=== PATIENT | male | born 1965 | race Caucasian/White ===

== ENCOUNTER 2024-02-29 17:43 | Inpatient (IN) | payer BC ==
[~2024-02-29] VITALS: Ht 165.1 cm; Wt 73.9 kg
[2024-02-29] MEDS: PIPERACILLIN/TAZO 3.375G/50ML 50 ML IV ONE (18:27)
[2024-02-29] MEDS: SODIUM CHLORIDE 0.9% 1000ML BAG (SEPSIS BOLUS) IV ONE (18:27)
[2024-02-29] MEDS: ACETAMINOPHEN 325MG TABLET PO STA (18:27)
[2024-02-29] MEDS: VANCOMYCIN 1G PREMIX 200 ML IV ONE (18:52)
[2024-02-29 18:59] LABS: HEMATOCRIT. 38.3 % (42.0-52.0); MEAN CORPUSCULAR HEMOGLOBIN 30.5 pg (28.0-32.0); MEAN CORPUSCULAR HGB CONC 33.9 g/dL (31.0-37.0); MEAN CORPUSCULAR VOLUME 90.1 fL (80.0-94.0); MEAN PLATELET VOLUME 7.4 fl (7.4-10.4); PLATELET 292 x1000/uL (130-400); RED BLOOD CELL COUNT 4.25 mill/uL (4.7-6.1); RED CELL DISTRIBUTION WIDTH 13.1 % (11.6-14.6); WHITE BLOOD COUNT 14.7 x1000/uL (4.5-11.0)
[2024-02-29 19:00] LABS: DIFFERENTIAL COMMENT 1
[2024-02-29 19:03] LABS: CHLORIDE 97 mEq/L (98-107); POTASSIUM 4.5 mEq/L (3.5-5.1); SODIUM 125 mEq/L (136-145)
[2024-02-29 19:04] LABS: CALCIUM 8.8 mg/dL (8.7-10.4); CARBON DIOXIDE 22 mEq/L (21-32)
[2024-02-29 19:09] LABS: CREATININE 1.3 mg/dL (0.6-1.3); UREA NITROGEN BLOOD 21 mg/dL (9-23)
[2024-02-29 19:10] LABS: CLARITY URINE CLOUDY (CLEAR); COLOR URINE YELLOW (YELLOW); GLUCOSE URINE 3+ (NEGATIVE); KETONES URINE 1+ (NEGATIVE); LEUKOCYTE ESTERASE URINE NEGATIVE (NEGATIVE); NITRITE URINE NEGATIVE (NEGATIVE); OCCULT BLOOD URINE 2+ (NEGATIVE); PH URINE 5.5 (4.5-8.0); PROTEIN URINE 2+ (NEGATIVE); SPECIFIC GRAVITY URINE 1.026 (1.005-1.030); UROBILINOGEN URINE 0.2 E.U./dL (0.2-1.0)
[2024-02-29 19:11] LABS: GLUCOSE 488 mg/dL (70-105)
[2024-02-29 19:20] LABS: PLATELET ESTIMATE NORMAL; PROTHROMBIN TIME 11.4 sec (9.6-11.0)
[2024-02-29 19:36] LABS: BACTERIA URINE 4+; SQUAMOUS EPITHELIAL CELL URINE FEW /lpf (RARE/1+); WBC URINE 25-50 /hpf (0-2)
[2024-02-29 19:53] LABS: ALANINE AMINOTRANSFERASE 13 IU/L (10-49); ALBUMIN 3.8 g/dL (3.2-4.8); ASPARTATE AMINOTRANSFERASE 16 IU/L (<34); BILIRUBIN DIRECT 0.2 mg/dL (<=3.0); BILIRUBIN TOTAL 0.5 mg/dL (0.1-1.0)
[2024-02-29 19:54] LABS: PROTEIN TOTAL 6.5 g/dL (6.0-8.3)
[2024-02-29] MEDS: INSULIN REGULAR (HUMULIN R) 300UNITS/3ML VIAL SUBCUT NR (20:09)
[2024-02-29 20:26] LABS: TROPONIN I HIGH SENSITIVITY 7 ng/L (3.0-53)
[2024-02-29] MEDS: IOHEXOL-300 100 ML BOTTLE ONE (21:53)
[2024-03-01] MEDS ORDERED: DEXTROSE 50% WATER 50ML SYRINGE IV PRN (11:00)
[2024-03-01] MEDS: PIPERACILLIN/TAZO 3.375G/50ML 50 ML IV SCH (11:08)
[2024-03-01] MEDS: INSULIN GLARGINE 100 UNITS/ML SUBCUT NR (11:41)
[2024-03-01] MEDS: BLOOD SUGAR DIAGNOSTIC STRIP TEST SCH (11:49)
[2024-03-01] MEDS: INSULIN LISPRO 100 UNITS/ML SUBCUT SCH (12:13)
[2024-03-01] MEDS: SODIUM CHLORIDE 0.9% 1,000 ML IV SCH (14:13)
[2024-03-01] MEDS: AMIKACIN 500MG in SODIUM CHLORIDE 0.9% 100ML IV NR (14:32)
[2024-03-01] MEDS: GADOTERATE MEGLUMINE 5 MMOL/10 ML VIAL IV ONE (16:44)
[2024-03-01 20:30] VITALS: PULSE 98; RESP 20; TEMP 98
[2024-03-01 20:41] VITALS: BP 153/78; PULSE 98; RESP 20; TEMP 98
[2024-03-01 20:45] VITALS: BP 153/78; PULSE 98; RESP 20; TEMP 98
[2024-03-01] MEDS: INSULIN GLARGINE 100 UNITS/ML SUBCUT SCH (21:56)
[2024-03-02] VITALS: BP 129/76; PULSE 92; RESP 19; TEMP 97.5
[2024-03-02 04:00] VITALS: BP 108/49; PULSE 80; RESP 16; TEMP 97.8
[2024-03-02 07:43] LABS: BASOPHILS % 0.5 % (0.0-2.0); EOSINOPHILS % 0.3 % (0.0-5.0); HEMATOCRIT. 33.5 % (42.0-52.0); HEMOGLOBIN. 11.5 g/dL (14.0-18.0); LYMPHOCYTES % 10.1 % (20.0-50.0); MEAN CORPUSCULAR HEMOGLOBIN 30.3 pg (28.0-32.0); MEAN CORPUSCULAR HGB CONC 34.2 g/dL (31.0-37.0); MEAN CORPUSCULAR VOLUME 88.4 fL (80.0-94.0); MEAN PLATELET VOLUME 7.1 fl (7.4-10.4); MONOCYTES % 9.4 % (2.0-8.0); NEUTROPHILS % 79.7 % (40.0-76.0); PLATELET 227 x1000/uL (130-400); RED BLOOD CELL COUNT 3.79 mill/uL (4.7-6.1); RED CELL DISTRIBUTION WIDTH 13.1 % (11.6-14.6); WHITE BLOOD COUNT 8.2 x1000/uL (4.5-11.0)
[2024-03-02 07:56] LABS: CALCIUM 7.9 mg/dL (8.7-10.4); CARBON DIOXIDE 24 mEq/L (21-32); CHLORIDE 102 mEq/L (98-107); POTASSIUM 3.9 mEq/L (3.5-5.1); SODIUM 133 mEq/L (136-145)
[2024-03-02 08:00] VITALS: BP 140/70; PULSE 80; RESP 18; TEMP 97.2
[2024-03-02 08:02] LABS: UREA NITROGEN BLOOD 15 mg/dL (9-23)
[2024-03-02 08:10] LABS: GLUCOSE 219 mg/dL (70-105)
[2024-03-02 12:00] VITALS: BP 137/68; PULSE 78; RESP 18; TEMP 97
[2024-03-02 16:00] VITALS: BP 153/90; PULSE 101; RESP 18; TEMP 97.4
[2024-03-02 20:00] VITALS: BP 142/67; PULSE 94; RESP 18; TEMP 98
[2024-03-02] MEDS: CEFTRIAXONE 2GM/50ML 50 ML IV SCH (21:07)
[2024-03-02] MEDS: INSULIN GLARGINE 100 UNITS/ML SUBCUT SCH (21:08)
[2024-03-03] VITALS: BP 151/72; PULSE 99; RESP 18; TEMP 97.5
[2024-03-03 04:00] VITALS: BP 138/84; PULSE 72; RESP 17; TEMP 98
[2024-03-03 08:00] VITALS: BP 154/81; PULSE 97; RESP 18; TEMP 97.2
[2024-03-03 12:00] VITALS: BP 134/77; PULSE 98; RESP 18; TEMP 98
[2024-03-03] MEDS: ENOXAPARIN 40MG/0.4ML SYR SUBCUT SCH (12:48)
[2024-03-03] MEDS ORDERED: LEVO750T68 MT (13:01)
[2024-03-03 16:00] VITALS: BP 159/84; PULSE 96; RESP 18; TEMP 97.3
[2024-03-03 20:26] VITALS: BP_SYST 149; BP_SYST 163; BP_DIAS 84; BP_DIAS 89; PULSE 88; RESP 20; TEMP 100.8; TEMP 98
[2024-03-03] MEDS: INSULIN GLARGINE 100 UNITS/ML SUBCUT SCH (23:18)
[2024-03-04] VITALS (7 sets, daily range): BP systolic 135–168; BP diastolic 66–91; PULSE 76–92; RESP 18–20; TEMP 97.7–99.1
[2024-03-04 08:36] LABS: BASOPHILS % 0.7 % (0.0-2.0); EOSINOPHILS % 0.7 % (0.0-5.0); HEMATOCRIT. 33.6 % (42.0-52.0); HEMOGLOBIN. 11.5 g/dL (14.0-18.0); LYMPHOCYTES % 14.5 % (20.0-50.0); MEAN CORPUSCULAR HEMOGLOBIN 30.1 pg (28.0-32.0); MEAN CORPUSCULAR HGB CONC 34.4 g/dL (31.0-37.0); MEAN CORPUSCULAR VOLUME 87.7 fL (80.0-94.0); MEAN PLATELET VOLUME 7.3 fl (7.4-10.4); MONOCYTES % 13.2 % (2.0-8.0); NEUTROPHILS % 70.9 % (40.0-76.0); PLATELET 213 x1000/uL (130-400); RED BLOOD CELL COUNT 3.83 mill/uL (4.7-6.1); RED CELL DISTRIBUTION WIDTH 13.2 % (11.6-14.6); WHITE BLOOD COUNT 7.5 x1000/uL (4.5-11.0)
[2024-03-05] VITALS: BP 175/89; PULSE 81; RESP 18; TEMP 98.4
[2024-03-05 04:00] VITALS: BP 133/61; PULSE 76; RESP 18; TEMP 100.4
[2024-03-05 07:52] VITALS: BP 143/73; PULSE 71; RESP 18; TEMP 98.2
[2024-03-05 12:00] VITALS: BP 169/88; PULSE 80; RESP 19; TEMP 96.3
[2024-03-05 16:00] VITALS: BP 152/75; PULSE 74; RESP 18; TEMP 98.1
[2024-03-05 20:00] VITALS: BP 158/93; PULSE 87; RESP 18; TEMP 98.1
[2024-03-06] VITALS: BP 170/90; PULSE 86; RESP 18; TEMP 97.7
[2024-03-06 04:00] VITALS: BP 164/72; PULSE 72; RESP 19; TEMP 97.9
[2024-03-06 08:00] VITALS: BP 154/57; PULSE 72; RESP 18; TEMP 97.9
[2024-03-06 12:00] VITALS: BP 155/88; PULSE 82; RESP 17; TEMP 98.1
[2024-03-06] MEDS ORDERED: PROPOFOL 200MG/20ML VIAL IV ONE (12:11)
[2024-03-06] MEDS ORDERED: CEFAZOLIN SODIUM 1000MG/VIAL ONE (12:22)
[2024-03-06] MEDS ORDERED: ONDANSETRON HCL 4MG/2ML INJ ONE (12:22)
[2024-03-06] MEDS ORDERED: MIDAZOLAM HCL 2 MG/2 ML VIAL ONE (12:22)
[2024-03-06] MEDS ORDERED: DEXAMETHASONE 4MG/ML 1ML VIAL ONE (12:22)
[2024-03-06] MEDS ORDERED: SUCCINYLCHOLINE CHLORIDE 200MG/10ML IV ONE (12:23)
[2024-03-06] MEDS ORDERED: LIDOCAINE HCL 1% 20ML VIAL (Pyxis) INJ ONE (12:23)
[2024-03-06] MEDS ORDERED: KETOROLAC 30MG/ML VIAL ONE (12:39)
[2024-03-06] MEDS ORDERED: FENTANYL CITRATE/PF 50MCG/ML 2ML VIAL ONE (12:48)
[2024-03-06] MEDS ORDERED: ONDANSETRON HCL 4MG/2ML INJ IV PRN (13:15)
[2024-03-06] MEDS ORDERED: MEPERIDINE HCL/PF 25MG/ML CPJ IV PRN (13:15)
[2024-03-06] MEDS ORDERED: FENTANYL CITRATE/PF 50MCG/ML 2ML VIAL IV PRN (13:15)
[2024-03-06] MEDS: HYDROMORPHONE HCL/PF 2MG/ML CPJ IV PRN (14:23)
[2024-03-06] MEDS: AMLODIPINE 10MG TABLET PO SCH (15:23)
[2024-03-06 16:00] VITALS: PULSE 69; RESP 18; TEMP 95.5
[2024-03-06 20:00] VITALS: BP 145/84; PULSE 93; RESP 18; TEMP 97.8
[2024-03-06] MEDS: METRONIDAZOLE 500MG TABLET PO SCH (23:02)
[2024-03-07 04:00] VITALS: BP 146/77; PULSE 77; RESP 18; TEMP 97.4
[2024-03-07 08:00] VITALS: BP 150/83; PULSE 75; RESP 19; TEMP 97.7
[2024-03-07 12:00] VITALS: BP 145/79; PULSE 75; RESP 18; TEMP 98.1
[2024-03-07 17:22] VITALS: BP 133/74; PULSE 78; RESP 19; TEMP 97.9
[2024-03-08 08:00] VITALS: BP 120/64; PULSE 80; RESP 18; TEMP 97.7
[2024-03-08 16:45] VITALS: BP 143/79; PULSE 82; RESP 19; TEMP 97.9
[2024-03-08 18:27] VITALS: BP 135/77; PULSE 86; TEMP 97.9; O2SAT 99
== END 2024-03-08 19:13 | disposition home health service (06) | DRG 854 ==
LOC: ER 17:43 → EDBD 17:43 → 5WST 20:09 → 7WST 03-01 20:28 → 6EST 03-04 16:23
PROVIDERS: ADMIT Internal Medicine; ATTEND Internal Medicine
PROC: 0VB08ZZ Excision of Prostate, Via Natural or Artificial Opening Endoscopic (ICD-10-PCS; principal; 2024-03-06)
DX: A41.51 Sepsis due to Escherichia coli [E. coli] (principal); E87.1 Hypo-osmolality and hyponatremia; N39.0 Urinary tract infection, site not specified; N41.2 Abscess of prostate; E11.65 Type 2 diabetes mellitus with hyperglycemia; Z20.822 Contact with and (suspected) exposure to COVID-19; N20.0 Calculus of kidney; I10 Essential (primary) hypertension; I25.10 Atherosclerotic heart disease of native coronary artery without angina pectoris; Z95.1 Presence of aortocoronary bypass graft; Z79.899 Other long term (current) drug therapy; Z87.440 Personal history of urinary (tract) infections
CPT/HCPCS: 36415; 71045; 72197; 74177; 80048; 80076; 81003; 82962; 83605; 84145; 84484; 85025; 87077; 87186; 87426; 87804; 88305; 93005; 99291; A9577; J0278; J0330; J0690; J0696; J1100; J1170; J1650; J1815; J1885; J2250; J2405; J2543; J2704; J3010; J3370; J3490; J7030; J7050; Q9967